=== PATIENT | female | born 1975 | race Two or more races ===

== ENCOUNTER 2024-04-15 16:36 | Emergency (ER) | payer BC, SELFPAY ==
--- NOTE | ~2024-04-15 | XR_ITS ---
CLINICAL HISTORY: cp 2 view chest x-ray. Comparison: None Findings: The lungs are adequately expanded. No focal consolidation. No effusion or pneumothorax. Cardiac and mediastinal contours are within normal limits. No acute osseous abnormality Impression: No acute process. This document has been electronically signed by: Andrew Suero MD on 04/15/2024 18:00:11
--- NOTE | 2024-04-15 16:39 | ECG_ITS ---
Test Reason : CHEST PAIN Blood Pressure : */* mmHG Vent. Rate : 72 BPM Atrial Rate : 72 BPM P-R Int : 158 ms QRS Dur : 78 ms QT Int : 376 ms P-R-T Axes : 15 58 15 degrees QTcB Int : 411 ms Normal sinus rhythm Nonspecific ST abnormality Abnormal ECG No previous ECGs available Referred By: Caren Perkins Electronically Signed By: PETR JACOME MD
[2024-04-15 16:58] VITALS: BP 125/70; PULSE 84; RESP 20; TEMP 36.8; O2SAT 100; BMI 29.1
--- NOTE | 2024-04-15 16:59 | ED_ITS ---
HPI - Chest Pain General Chief Complaint: Chest Pain Stated Complaint: chest pain, L arm pain Time Seen by Provider: 04/16/24 01:36 History of Present Illness ED Provider: Donna PRATT narrative: The patient is a 48-year-old woman who says that starting on Saturday she had some discomfort in her left chest and she felt there was some swelling in her left chest. Later she felt that she had similar symptoms on the right side. Additionally she has had some pain in her arms. At 1 point when her symptoms were most significant she took a dose of Flexeril with improvement in her pain. No fever, sweats, chills. No abdominal pain, nausea, vomiting. No pain or swelling in her legs. The patient says that she has had 2 small strokes. She says she was treated at [facility]. She is on atorvastatin. Related Data Allergies Allergy/AdvReac Type Severity Reaction Status Date / Time No Known Allergies Allergy Verified 04/15/24 17:05 Review of Systems 2 Review of Systems: Yes all other systems are reviewed and are negative [facility] Social History Social History Advance Directives: No Advance Directives Information Provided: Yes Do you have a plan to hurt others: No Plan Physical Exam 2 Vital Signs: Vital Signs: Last Vital Signs Temp 98.6 F 04/16/24 01:54 Pulse 88 04/16/24 01:54 Resp 15 04/16/24 01:54 BP 125/86 04/16/24 01:54 Pulse Ox 95 04/16/24 01:54 O2 Del Method Room Air 04/16/24 01:54 BMI result Body Mass Index 29.1 Const: Other: The patient is awake and alert. She is very youthful looking 48-year-old. She does not appear in any distress. She seems quite comfortable, cheerful, and very active. HEENT: Other: Face is symmetrical. Mucous membranes moist. Eyes: General: appearance normal, both eyes and all related structures Neck: Neck: Yes full ROM and Yes no JVD Resp: Effort & Inspection: normal respiratory effort Auscultation: clear to auscultation bilaterally Cardio: Rate: regular rate Rhythm: regular rhythm Heart sounds: S1 normal heart sound present and S2 normal heart sound present Skin: Other: Skin is dry and unremarkable Neuro: Other: The patient is awake and alert and looks entirely nontoxic and well. She is cheerful and talkative. She has a normal mental status. Cranial nerves 2-12 are intact. She moves her extremities normally. She has a normal gait. Extrem: Other: No calf swelling or tenderness. No peripheral edema. No asymmetry. Course Course Course Narrative: This is a Rapid Medical Exam performed in triage by Caren Perkins PA-C. Full HPI, ROS and PE to be performed by primary ED provider. 48-year-old female presenting to the ED c/o left-sided chest pain since Saturday. admits area feels inflamed w/L breast pain/swelling & assoc SOB PE: Talking in complete sentences, nontoxic appearing, lungs CTA. Plan: EKG, labs, CXR, viral testing Medical Decision Making Medical Decision Making MDM Narrative: The patient is a 48-year-old woman who reports a history of a stroke for which she was treated at [facility]. She looks entirely well today. Her description of her chest symptoms are very nonspecific. Based on her history and her physical exam my suspicion for an acute coronary syndrome would be quite low. I feel she has a nonischemic EKG. Her EKG shows normal sinus rhythm at 72 beats per minute. she has some mild nonspecific ST changes that I think are very unlikely to indicate an acute coronary syndrome. Her lab testing is unremarkable including an undetectable troponin. Viral testing is negative. She looks entirely well and nontoxic. The patient is reassured. Perhaps her pains have been muscular pains. She seems safe for discharge. Apparently her primary care doctor recently and she has not yet established a new primary care doctor. She hopes to follow-up at the [facility] primary care office in [place]. Lab Data 04/15/24 17:41 04/15/24 17:41 Labs: Lab Results 04/15/24 Range/Units 17:41 WBC 12.8 H (4.8-10.8) X10*3/uL RBC 4.81 (4.20-5.50) X10*6/uL Hgb 13.0 (12.0-16.0) g/dl Hct 39.4 (37.0-47.0) % MCV 81.9 (80.0-98.0) fL MCH 27.0 (27.0-33.0) pg MCHC 33.0 (31.0-35.0) g/dl RDW 13.7 (11.0-16.0) % Plt Count 291 (160-400) X10*3/uL MPV 10.3 (9.4-12.3) fL Immature Gran % (Auto) 1.1 H (0.0-0.4) % Neut % (Auto) 59.8 (45-73) % Lymph % (Auto) 29.6 (20-40) % [place] % (Auto) 6.7 (2-11) % Eos % (Auto) 2.5 (0-4) % Baso % (Auto) 0.3 (0-2) % Lymph # (Auto) 3.8 (1.2-4.9) X10*3/uL [place] # (Auto) 0.9 (0.1-1.2) X10*3/uL Eos # (Auto) 0.3 (0.0-0.4) X10*3/uL Baso # (Auto) 0.0 (0.0-0.2) X10*3/uL Abs Immat Gran (auto) 0.14 H (0.00-0.03) X10*3/uL Absolute Neuts (auto) 7.7 (2.0-8.3) x10*3/uL Absolute Nucleated RBC 0.000 (0.0-0.012) X10*3/uL Nucleated RBC % (auto) 0.0 (0.0-0.2) /100WBC PT 10.8 L (10.9-12.4) SEC INR 0.9 (0.9-1.1) Sodium 142 (135-145) mmol/L Potassium 4.2 (3.3-5.1) mmol/L Chloride 109 H (96-108) mmol/L Carbon Dioxide 25 (22-29) mmol/L Anion Gap 12 (12-20) BUN 22 H (9-16) mg/dL Creatinine 0.74 (0.5-1.4) mg/dL Estim Creat Clear Calc 88.8 Estimated GFR > 60 Random Glucose 90 (60-115) mg/dL Calcium 9.0 (8.4-10.2) mg/dL Magnesium 2.3 (1.6-2.6) mg/dL Total Bilirubin 0.3 (0.0-1.0) mg/dL Direct Bilirubin 0.1 (0.0-0.5) mg/dL AST 20 (5-31) U/L ALT 19 (0-31) U/L Alkaline Phosphatase 69 (39-117) U/L Troponin I High Sens < 2.7 (<3.5-17.0) ng/L B-Natriuretic Peptide < 10 (<100) pg/mL Total Protein 7.8 (6.5-8.0) g/dL Albumin 4.1 (3.5-5.0) g/dL Influenza Type A (PCR) NEGATIVE (Negative) Influenza Type B (PCR) NEGATIVE (Negative) RSV RNA Qual (PCR) NEGATIVE (Negative) SARS-CoV-2 RNA (RT-PCR) NEGATIVE (Negative) Discharge Plan Discharge Clinical Impression: Chest pain Patient Disposition: Home, Self-Care Additional Instructions: I do not think the symptoms you has been experiencing are a heart attack or the warning signs of a heart attack. I think it is more likely the symptoms you has been experiencing might be related to pain from muscles in your chest. Please work on getting a new primary care doctor for a follow up appointment. If at any point you feel significantly worse, especially if you feel short of breath or nauseated, return to the emergency room for additional evaluation. Referrals: [facility] [place] [Provider Group] (Needs new PCP) Interventions: ED Discharge Assessment Last Done: 04/16/24 01:54 Discharge Date/Time: 04/16/24 02:04 Print Language: Bulgarian
[2024-04-15 17:46] LABS: MANUAL DIFF FLAG NO
[2024-04-15 18:00] LABS: INTERNATIONAL NORM RATIO 0.9 (0.9-1.1); Prothrombin Time 10.8 SEC (10.9-12.4)
[2024-04-15 18:04] LABS: Alanine Aminotransferase 19 U/L (0-31); Albumin Level 4.1 g/dL (3.5-5.0); Alkaline Phosphatase 69 U/L (39-117); Anion Gap 12 (12-20); Aspartate Amino Transferase 20 U/L (5-31); Bilirubin Direct 0.1 mg/dL (0.0-0.5); Bilirubin Total 0.3 mg/dL (0.0-1.0); Blood Urea Nitrogen 22 mg/dL (9-16); Carbon Dioxide 25 mmol/L (22-29); Chloride 109 mmol/L (96-108); Creatinine Clr Calc Pharmacy 88.8; Estimated Glomerular Filt Rate > 60; Glucose Random 90 mg/dL (60-115); Magnesium 2.3 mg/dL (1.6-2.6); Potassium 4.2 mmol/L (3.3-5.1); Sodium 142 mmol/L (135-145); Total Protein 7.8 g/dL (6.5-8.0)
[2024-04-15 18:06] LABS: Basophils Percent Auto 0.3 % (0-2); Eosinophils Absolute Auto 0.3 X10*3/uL (0.0-0.4); Eosinophils Percent Auto 2.5 % (0-4); Hematocrit 39.4 % (37.0-47.0); Imm Gran Abs Auto 0.14 X10*3/uL (0.00-0.03); Imm Gran Pct Auto 1.1 % (0.0-0.4); Lymphocytes Absolute Auto 3.8 X10*3/uL (1.2-4.9); Lymphocytes Percent Auto 29.6 % (20-40); Mean Corpuscular Volume 81.9 fL (80.0-98.0); Mean Platelet Volume 10.3 fL (9.4-12.3); Monocytes Absolute Auto 0.9 X10*3/uL (0.1-1.2); Monocytes Percent Auto 6.7 % (2-11); Neutrophils Absolute Auto 7.7 x10*3/uL (2.0-8.3); Neutrophils Percent Auto 59.8 % (45-73); Platelet Count 291 X10*3/uL (160-400); Red Blood Count 4.81 X10*6/uL (4.20-5.50); Red Cell Distribution Width 13.7 % (11.0-16.0); White Blood Count 12.8 X10*3/uL (4.8-10.8)
[2024-04-15 18:09] LABS: B Type Natriuretic Peptide < 10 pg/mL (<100)
[2024-04-15 18:16] LABS: Troponin-I High Sensitivity < 2.7 ng/L (<3.5-17.0)
[2024-04-15 18:33] LABS: Influenza A PCR NEGATIVE (Negative); Influenza B PCR NEGATIVE (Negative); Resp Syncy Virus RNA Qual PCR NEGATIVE (Negative); SARS COV2 PCR INHOUSE NEGATIVE (Negative)
[2024-04-15 23:53] VITALS: BP 127/50; PULSE 78; RESP 17; TEMP 37; O2SAT 98
[2024-04-16 01:54] VITALS: BP 125/86; PULSE 88; RESP 15; TEMP 37; O2SAT 95
== END 2024-04-16 02:04 | disposition home or self-care (01) ==
LOC: HO.ED 04-16 01:55
PROVIDERS: Physician Assistant; Emergency Provider Emergency Medicine; PCP Internal Medicine
DX: R07.89 Other chest pain (principal); M79.602 Pain in left arm; M79.601 Pain in right arm; R06.02 Shortness of breath; Z86.73 Personal history of transient ischemic attack (TIA), and cerebral infarction without residual deficits; Z03.818 Encounter for observation for suspected exposure to other biological agents ruled out
CPT/HCPCS: 0241U; 36415; 71046; 80048; 80076; 83735; 83880; 84484; 85025; 85610; 93005; 99283

== ENCOUNTER → 2024-04-15 16:39 | Outpatient (BNV) | payer BC, SELFPAY | PROVIDERS: Emergency Provider Emergency Medicine; PCP Internal Medicine; Visit Provider Internal Medicine Cardiovascular Disease | DX: R07.9 Chest pain, unspecified (principal) | CPT/HCPCS: 93010 ==

== ENCOUNTER → 2024-04-15 17:01 | Outpatient (BNV) | payer SELFPAY | PROVIDERS: PCP Internal Medicine; Visit Provider Radiology Vascular & Interventional Radiology | DX: R07.9 Chest pain, unspecified (principal) | CPT/HCPCS: 71046 ==

== ENCOUNTER 2024-06-21 18:44 | Inpatient (IN) | payer OTHER, SELFPAY ==
--- NOTE | ~2024-06-21 | CT_ITS ---
CLINICAL HISTORY: Stroke Protocol CT angiography head and neck with contrast. 3D Postprocessing. Comparison: CT/SR - CT HEAD FOR STROKE - 06/21/24 19:01 EDT Findings: Aortic arch and cervical great vessels are patent with no aneurysm, dissection, hemodynamically significant stenoses, or occlusion. Intracranial arteries are patent. No aneurysm, dissection, hemodynamically significant stenoses, or occlusion. No abnormal intracranial enhancement. The visualized thyroid gland is unremarkable. No cervical mass or fluid collection. Lung apices clear. No acute fracture. IMPRESSION: Patent head and neck CTA. This document has been electronically signed by: Sharyn Ibarra MD on 06/21/2024 19:31:56
--- NOTE | ~2024-06-21 | MR_ITS ---
EXAMINATION: MR BRAIN WITHOUT CONTRAST CLINICAL INFORMATION: TIA COMPARISON: Correlated to CT head and CT angiogram head and neck dated June 21, 2024. TECHNIQUE: MRI of the brain was obtained using routine sequences without contrast. FINDINGS: Paramagnetic field distortion limiting the visualization of the anterior cranial fossa and middle cranial fossa. No restricted diffusion within the brain parenchyma. There is a focal, 4 mm, round, extra-axial, isointense T1 intermediate T2 FLAIR signal in the right midline posterior interhemispheric falx near the marginal sulcus. No acute intracranial hemorrhage, mass effect, midline shift, hydrocephalus or herniation. Flow-void signal within the main cerebral vessels is normal. There is a 1.14 cm heterogeneous mixed cystic component lesion in the pineal gland. Sellar/suprasellar region demonstrated prominence of the intrasellar CSF. Craniocervical junction is intact and normal. MR/MR head/brain wo con IMPRESSION: No acute stroke/nonhemorrhagic ischemia. Probable 4 mm meningioma, right midline posterior falx. 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 Electronically signed by: Nilo Burch MD 06/23/2024 08:30 AM EDT
--- NOTE | ~2024-06-21 | CT_ITS ---
CLINICAL HISTORY: Stroke Protocol, LEFT SIDE FACIAL DROOP CT head without contrast Comparison: None Findings: No intra-axial mass, midline shift, hydrocephalus, or acute hemorrhage. No significant atrophy-like change or white matter disease. Near-complete opacification of the left maxillary sinus. The orbits are within normal limits. There is no acute fracture. IMPRESSION: 1. No acute intracranial findings. This document has been electronically signed by: Sharyn Ibarra MD on 06/21/2024 19:13:37
[2024-06-21 18:49] VITALS: BP 122/89; PULSE 84; RESP 22; TEMP 36.7; O2SAT 99; BMI 28.3
--- NOTE | 2024-06-21 18:56 | ECG_ITS ---
Test Reason : STROKE ALERT Blood Pressure : */* mmHG Vent. Rate : 69 BPM Atrial Rate : 69 BPM P-R Int : 200 ms QRS Dur : 80 ms QT Int : 394 ms P-R-T Axes : 22 70 31 degrees QTcB Int : 422 ms Normal sinus rhythm Normal ECG When compared with ECG of 15-Apr-2024 16:49, No significant change was found Referred By: Jocelynn Aparicio Electronically Signed By: CHALO ODELL
--- NOTE | 2024-06-21 18:59 | ED_ITS ---
HPI - Neuro Symptoms/Deficit General Chief Complaint: Stroke Stated Complaint: left sode of face swelling/droop Time Seen by Provider: 06/21/24 18:57 Source: patient, family and old records reviewed Mode of arrival: ambulatory Limitations: no limitations History of Present Illness ED Provider: JOSEPH PRATT Narrative: 48 yo female with PMH of stroke she reports at [facility] 2 years ago as well as small tumor noted on MRI - she takes aspirin daily as well as atorvastatin. She comes in today as just [employer] she developed nausea and her L face was tingling. She became nervous as she states this reminded her of her prior stroke. She states at home her L eye was drooping. She is not on thinners. No recent illness/falls. She has no other symptoms. She reports atraumatic R subconj hemorrhage as well. She is compliant with all of her medications Onset (ago): hour(s) (1) Location: left face History of same: Yes Severity: mild Quality: weak and tingling Relieving factors: none Exacerbating factors: none Context: sudden onset On Anticoagulants: No Associated symptoms: denies other symptoms Treatments Prior to Arrival: none Related Data Allergies Allergy/AdvReac Type Severity Reaction Status Date / Time No Known Allergies Allergy Verified 06/21/24 18:56 Review of Systems 2 Review of Systems: Constitutional : No Fever, No Chills, No Fatigue ENT/Mouth : No sore throat, No Rhinorrhea Eyes: No Eye Pain, No Swelling, No Redness Cardiovascular : No Chest Pain, No SOB, No Dyspnea on Exertion Respiratory : No Cough, No Sputum Gastrointestinal : No Nausea, No Vomiting, No Diarrhea, No abdominal Pain Genitourinary : No Dysuria, No Urinary Frequency, No Hematuria, Musculoskeletal : No joint pain, No Myalgias, No Joint Swelling Skin : No Skin Lesions, No rash Neuro : pos Weakness, pos Numbness, No Dizziness, positive Headache All other systems reviewed and are negative [facility] Past Medical History Attestation statement: The following information was validated with the patient. Medical History (Updated 06/21/24 @ 19:59 by Suzie Kelley DO) CVA (cerebral vascular accident) HLD (hyperlipidemia) Social History Social History (Updated 06/21/24 @ 19:57 by Suzie Kelley DO) Patient Tobacco Use Status: Never used Tobacco Advance Directives: No Advance Directives Information Provided: No Physical Exam 2 Vital Signs: Vital Signs: Last Vital Signs Temp 98.0 F 06/21/24 19:23 Pulse 71 06/21/24 19:23 Resp 18 06/21/24 19:23 BP 130/62 06/21/24 19:23 Pulse Ox 99 06/21/24 19:23 O2 Del Method Room Air 06/21/24 19:23 BMI result Body Mass Index 28.3 Appearance: Alert. Oriented X3. No acute distress. Eyes: Pupils equal, round and reactive to light. small R subconj hemorrhage noted R eye medial ENT: Pharynx normal. Neck: Normal inspection. Neck supple. CVS: Normal heart rate and rhythm. Pulses normal. Respiratory: No respiratory distress. Breath sounds normal. Abdomen: Soft and nontender. Skin: Skin warm and dry. Normal skin color. Normal skin turgor. Extremities: No lower extremity edema. No calf ttp Neuro: Oriented X 3. No motor deficit. No sensory deficit. CN2-12 intact Course Course Course Narrative: This is an RME performed by Tara Aparicio CNP: Additional HPI, ROS, PE not included below will be deferred to primary provider. Patient is a 48-year-old female who presents emergency department with her spouse for evaluation. Last known well time 18:20. Reports that she went to take a shower, she then developed numbness to the left side of her face and drooping to the left eye which has since resolved since her arrival to the emergency department. She is very tearful during examination. She reports that she has had 4 strokes in the past, and has a ?Tumor in the has been seen on previous MRI. States that she takes atorvastatin and low-dose baby aspirin. No focal neurological deficits at the time of my evaluation. Ambulatory with steady gait. Evaluated by Dr. Kelley, orders placed for stroke protocol, ED nurse discharge made aware, patient assigned to ED bed [address] Reevaluation(s) Reevaluation #1: 758pm still NIH 0 Medications Administered Discontinued Medications Generic Name Dose Route Start Last Admin Trade Name Freq PRN Reason Stop Dose Admin Iohexol 100 ml 06/21/24 19:11 06/21/24 19:12 Iohexol 350 Mg/Ml 100 Ml Infus..Btl IV 06/21/24 19:12 75 ml ONCE ONE Administration Medical Decision Making Medical Decision Making MDM Narrative: 48 yo female with PMH of stroke she reports at [facility] 2 years ago as well as small tumor noted on MRI here with L face weakness resolved, L numbness face resolved hx of same in past dx with stroke - will get records from [facility]. At this time she is NIH 0 no indication for TNK given no deficits on arrival. Will obtain stroke protocol and outside records Differential Diagnosis Differential Diagnoses: The differential diagnosis associated with the presentation includes TIA, CVA, anxiety Admission/Observation Consideration of admission/observation: Escalation of care including admission/observation considered admit for TIA Consult Healthcare Provider Management of the patient was discussed with: Hospitalist (will admit) Lab Data [facility] Lab Attestation statement: I reviewed the patient's lab results. 06/21/24 19:29 06/21/24 19:29 Labs: Lab Results 06/21/24 06/21/24 Range/Units 19:24 19:29 WBC 12.2 H (4.8-10.8) X10*3/uL RBC 4.34 (4.20-5.50) X10*6/uL Hgb 11.4 L (12.0-16.0) g/dl Hct 35.5 L (37.0-47.0) % MCV 81.8 (80.0-98.0) fL MCH 26.3 L (27.0-33.0) pg MCHC 32.1 (31.0-35.0) g/dl RDW 13.1 (11.0-16.0) % Plt Count 275 (160-400) X10*3/uL MPV 10.5 (9.4-12.3) fL Immature Gran % (Auto) 0.5 H (0.0-0.4) % Neut % (Auto) 64.3 (45-73) % Lymph % (Auto) 25.7 (20-40) % [place] % (Auto) 6.4 (2-11) % Eos % (Auto) 2.5 (0-4) % Baso % (Auto) 0.6 (0-2) % Lymph # (Auto) 3.2 (1.2-4.9) X10*3/uL [place] # (Auto) 0.8 (0.1-1.2) X10*3/uL Eos # (Auto) 0.3 (0.0-0.4) X10*3/uL Baso # (Auto) 0.1 (0.0-0.2) X10*3/uL Abs Immat Gran (auto) 0.06 H (0.00-0.03) X10*3/uL Absolute Neuts (auto) 7.9 (2.0-8.3) x10*3/uL Absolute Nucleated RBC 0.000 (0.0-0.012) X10*3/uL Nucleated RBC % (auto) 0.0 (0.0-0.2) /100WBC PT 11.3 (10.9-12.4) SEC INR 1.0 (0.9-1.1) APTT 33.1 (26.0-36.8) SEC Sodium 137 (135-145) mmol/L Potassium 3.8 (3.3-5.1) mmol/L Chloride 109 H (96-108) mmol/L Carbon Dioxide 22 (22-29) mmol/L Anion Gap 10 L (12-20) BUN 15 (9-16) mg/dL Creatinine 0.63 (0.5-1.4) mg/dL Estim Creat Clear Calc 103.1 Estimated GFR > 60 POC Glucose 98 (60-115) mg/dL Random Glucose 94 (60-115) mg/dL Calcium 8.5 (8.4-10.2) mg/dL Troponin I High Sens < 2.7 (<3.5-17.0) ng/L Triglycerides 91 (<150) mg/dL Cholesterol 145 (<200) mg/dL LDL Cholesterol, Calc 70 (<100) mg/dL HDL Cholesterol 57 (>40) mg/dL Independent Interpretation I performed an independent interpretation of an: EKG and CT Scan (normal ) Interpretation: Rate: 69 Rhythm: NSR Jamul: normal Normal P waves. Normal MATEO. Normal QRS complex. ST T wave : normal no CAMILLA , inverted t wave V1 qTC: 422 prior studies: no acute ischemia The study has been interpreted contemporaneously by me. . Radiology Impression Discussion of test interpretation with radiology: I discussed test interpretation with the radiologist and I have reviewed the radiologist's reading. Independent Historian Clinical information obtained from an independent historian. History obtained from or confirmed by: Spouse External Record Review External record reviewed: Outpatient record NIH Stroke Scale Internal: Initial- Upon Arrival Level of Consciousness: Alert Level of Consciousness Questions: Answers both questions correctly Level of Consciousness Commands: Performs both tasks correctly Best Gaze: Normal Visual: No visual loss Facial Palsy: Normal Motor Arm (Right): No drift Motor Arm (Left): No drift Motor Leg (Right): No drift Motor Leg (Left): No drift Limb Ataxia: Absent Sensory: Normal Best Language: No aphasia Dysarthia: Normal Extinction and Inattention: No abnormality Score: 0 Critical Care Time Critical Care Time Critical Care Time: Yes Total Critical Care Time: 35 Attestation: stroke protocol, outside records, review of records, repeat asessments I attest to this time spent taking care of the patient Discharge Plan Discharge Clinical Impression: Brain TIA Patient Disposition: Admitted As Inpatient Print Language: New Zealander
[2024-06-21] MEDS: iohexoL 350 MG/ML 100 ML INFUS..BTL IV (19:12)
[2024-06-21 19:23] VITALS: BP 130/62; PULSE 71; RESP 18; TEMP 36.7; O2SAT 99
[2024-06-21 19:36] LABS: MANUAL DIFF FLAG NO
[2024-06-21 19:37] LABS: Glucose, Whole Blood 98 mg/dL (60-115)
[2024-06-21 19:41] LABS: Basophils Absolute Auto 0.1 X10*3/uL (0.0-0.2); Basophils Percent Auto 0.6 % (0-2); Eosinophils Absolute Auto 0.3 X10*3/uL (0.0-0.4); Eosinophils Percent Auto 2.5 % (0-4); Hematocrit 35.5 % (37.0-47.0); Hemoglobin 11.4 g/dl (12.0-16.0); Imm Gran Abs Auto 0.06 X10*3/uL (0.00-0.03); Imm Gran Pct Auto 0.5 % (0.0-0.4); Lymphocytes Absolute Auto 3.2 X10*3/uL (1.2-4.9); Lymphocytes Percent Auto 25.7 % (20-40); Mean Corpuscular HGB Conc 32.1 g/dl (31.0-35.0); Mean Corpuscular Hemoglobin 26.3 pg (27.0-33.0); Mean Corpuscular Volume 81.8 fL (80.0-98.0); Mean Platelet Volume 10.5 fL (9.4-12.3); Monocytes Absolute Auto 0.8 X10*3/uL (0.1-1.2); Monocytes Percent Auto 6.4 % (2-11); Neutrophils Absolute Auto 7.9 x10*3/uL (2.0-8.3); Neutrophils Percent Auto 64.3 % (45-73); Platelet Count 275 X10*3/uL (160-400); Red Blood Count 4.34 X10*6/uL (4.20-5.50); Red Cell Distribution Width 13.1 % (11.0-16.0); White Blood Count 12.2 X10*3/uL (4.8-10.8)
[2024-06-21 19:43] LABS: Prothrombin Time 11.3 SEC (10.9-12.4)
[2024-06-21 19:46] LABS: Partial Thromboplastin Time 33.1 SEC (26.0-36.8); Stroke Lab Use COMPLETE
[2024-06-21 19:52] LABS: Anion Gap 10 (12-20); Blood Urea Nitrogen 15 mg/dL (9-16); Calcium 8.5 mg/dL (8.4-10.2); Carbon Dioxide 22 mmol/L (22-29); Chloride 109 mmol/L (96-108); Cholesterol 145 mg/dL (<200); Creatinine Clr Calc Pharmacy 103.1; Estimated Glomerular Filt Rate > 60; Glucose Random 94 mg/dL (60-115); HDL Cholesterol 57 mg/dL (>40); LDL Cholesterol Calculated 70 mg/dL (<100); Potassium 3.8 mmol/L (3.3-5.1); Sodium 137 mmol/L (135-145); Triglycerides 91 mg/dL (<150)
[2024-06-21 20:08] LABS: Troponin-I High Sensitivity < 2.7 ng/L (<3.5-17.0)
[2024-06-21] MEDS: Aspirin 81 MG TAB.CHEW PO (21:30)
--- NOTE | 2024-06-21 21:32 | PC.NURSE ---
verbal read back for vital change dr. lubin
--- NOTE | 2024-06-21 21:41 | PC.NURSE ---
swallow screen completed- pt passed. Stroke education overview completed, pamphlet provided. pt verbalized understanding
[2024-06-21 23:22] VITALS: BP 145/71; PULSE 71; RESP 19; TEMP 36.6; O2SAT 100
--- NOTE | 2024-06-21 23:25 | MHC.EDTECH ---
This tech took over care of pt at 2300,rounded and introduced self to pt,vitals taken,belongings list completed copy placed in chart,pt is walking around room appears comfortable,call pinto within reach
--- NOTE | 2024-06-21 23:41 | P.HPHOSP_ITS ---
History of Present Illness Date of Service: 06/21/24 Attending physician on admission: Sarita Huffman Chief Complaint: L eye droop Patient is a 48-year-old female with a past medical history significant for CVA, who presented to the ED due to nausea earlier this morning followed by a noticeable left eye droop around 18:00 with left-sided facial numbness. The patient reports that she has a history of a CVA with similar symptoms however her vision was completely blocked at that time. This time she has not had any left-sided eye droop that she observed. This has since resolved and she feels back at her normal baseline. She does take aspirin and statin at baseline. She also a right subconjunctival hemorrhage that she woke up with this morning with unknown cause. Review of Systems 2 Constitutional: Constitutional: Denies body ache(s), Denies chills, Denies fatigue, Denies fever(s) and Denies headache(s) Eyes: Eyes: Denies change in vision and Denies photophobia ENT: Denies vertigo, Denies dizziness, Denies headache(s), Denies nasal congestion, Denies nasal discharge and Denies sore throat Cardiovascular: Cardiovascular: Denies chest pain, Denies syncope, Denies rapid heart rate, Denies leg edema, Denies lightheadedness and Denies dyspnea Respiratory: Respiratory: Denies chest congestion, Denies cough, Denies dyspnea and Denies wheezing Gastrointestinal: Gastrointestinal: Denies GI cramping, Denies diarrhea, Denies nausea and Denies vomiting Genitourinary: Genitourinary: Denies dysuria, Denies flank pain and Denies urinary urgency Musculoskeletal: Musculoskeletal: Denies myalgias, Denies numbness and Denies tingling Integumentary/Breasts: Skin/Breast: Denies rash Neurologic: Denies confusion, Denies vertigo, Denies dizziness, Denies syncope, Denies headache(s), Denies memory loss, Denies numbness, Denies seizure-like activity and Denies tingling Psychiatric: Psychiatric: Denies confusion and Denies memory loss Endocrine: Endocrine: Denies fatigue Hematologic/Lymphatic: Hematologic/Lymphatic: Denies easy bleeding and Denies easy bruising Allergic/Immunologic: Allergic/Immunologic: Denies wheezing [facility] Medical History CVA (cerebral vascular accident) HLD (hyperlipidemia) Functional capacity: independent ambulation Social History (Updated 06/21/24 @ 19:57 by Suzie Kelley DO) Patient Tobacco Use Status: Never used Tobacco Smoked in Last 30 Days: No Use of substances other than those prescribed or required for medical reasons: No Advance Directives: No Advance Directives Information Provided: No Patient : No Narrative: No smoking, alcohol or drug use Meds Allergies Allergy/AdvReac Type Severity Reaction Status Date / Time No Known Allergies Allergy Verified 06/21/24 18:56 Physical Exam 2 Vital Signs and Narrative: Vital Signs: Last Vital Signs Temp 97.8 F 06/21/24 23:22 Pulse 71 06/21/24 23:22 Resp 19 06/21/24 23:22 BP 145/71 H 06/21/24 23:22 Pulse Ox 100 06/21/24 23:22 O2 Del Method Room Air 06/21/24 23:22 BMI result Body Mass Index 28.3 General: AOx3, no acute distress Resp: CTA bilaterally CVS: S1, S2, RRR GI: +BS, NT, no distention Skin: Warm, dry Neuro: Cranial nerves II-XII grossly intact bilaterally. Motor grossly intact bilaterally. 5/5 strength bilateral upper and lower extremities. Extremities: No LE edema Psych: Appropriate affect Const: General: No confusion Orientation/consciousness: No confusion Eyes: Direct Ophthalmoscopy: No photophobia Neuro: General: No confusion Results Labs 06/21/24 19:29 06/21/24 19:29 Labs: Laboratory Results - last 24 hr 06/21/24 06/21/24 19:24 19:29 MCV 81.8 MCH 26.3 L MCHC 32.1 RDW 13.1 Plt Count 275 MPV 10.5 Immature Gran % (Auto) 0.5 H Neut % (Auto) 64.3 Lymph % (Auto) 25.7 [place] % (Auto) 6.4 Eos % (Auto) 2.5 Baso % (Auto) 0.6 Lymph # (Auto) 3.2 [place] # (Auto) 0.8 Eos # (Auto) 0.3 Baso # (Auto) 0.1 Abs Immat Gran (auto) 0.06 H Absolute Neuts (auto) 7.9 Absolute Nucleated RBC 0.000 Nucleated RBC % (auto) 0.0 PT 11.3 INR 1.0 APTT 33.1 Anion Gap 10 L Estim Creat Clear Calc 103.1 Estimated GFR > 60 POC Glucose 98 Random Glucose 94 Calcium 8.5 Triglycerides 91 Cholesterol 145 LDL Cholesterol, Calc 70 HDL Cholesterol 57 Assessment and Plan (1) Brain TIA: Status: Acute Plan Patient is a 48-year-old female with a past medical history significant for CVA, who presented to the ED due to nausea earlier this morning followed by a noticeable left eye droop around 18:00 with left-sided facial numbness. TIA, L facial droop, resolved - CT head and CTA head and neck negative - symptoms resolved, back at baseline - given ASA 81 mg in ED, continue QD - lipid panel normal. continue statin - MRI brain in AM - neurology consult - neuro checks Q2H - EKG with NSR - monitor on tele - echo with bubble study full code VTE prophy: lovenox Pt with L facial droop, resolved, likely TIA, requiring admission for further evaluation and monitoring for at least 2 midnights stay. Quality Stroke Does the patient have a stroke diagnosis?: No VTE Prior VTE?: No VTE Risk Level:: Medical - moderate - high VTE Device Contraindication: Treatment Not Indicated VTE Drug Contraindication: N/A - Med Ordered
[2024-06-22] VITALS (8 sets, daily range): BP systolic 106–126; BP diastolic 51–71; PULSE 59–77; RESP 14–18; TEMP 36.2–36.8; O2SAT 97–100; BMI 30.5
[2024-06-22] MEDS: 0.9 % Sodium Chloride Flush 3 ML SYRINGE IVFLUSH ×3 (01:15→23:30)
--- NOTE | 2024-06-22 04:06 | MHC.EDTECH ---
Rounds and vitals completed, pt is resting quietly,appears comfortable,call pinto in reach
[2024-06-22 05:42] LABS: Estimated Average Glucose 103 mg/dL; Hemoglobin A1C 98.3347 umol/L; Hemoglobin A1c % 5.2 % (<6.0); Total Hemoglobin (HGBA1C) 2979.3433 umol/L
[2024-06-22 05:53] LABS: Hematocrit 36.5 % (37.0-47.0); Hemoglobin 11.7 g/dl (12.0-16.0); Mean Corpuscular HGB Conc 32.1 g/dl (31.0-35.0); Mean Corpuscular Hemoglobin 26.1 pg (27.0-33.0); Mean Corpuscular Volume 81.5 fL (80.0-98.0); Mean Platelet Volume 10.6 fL (9.4-12.3); Platelet Count 271 X10*3/uL (160-400); Red Blood Count 4.48 X10*6/uL (4.20-5.50); Red Cell Distribution Width 13.2 % (11.0-16.0); White Blood Count 9.1 X10*3/uL (4.8-10.8)
[2024-06-22 06:05] LABS: Anion Gap 12 (12-20); Blood Urea Nitrogen 11 mg/dL (9-16); Calcium 8.5 mg/dL (8.4-10.2); Carbon Dioxide 21 mmol/L (22-29); Chloride 111 mmol/L (96-108); Creatinine Clr Calc Pharmacy 96.9; Estimated Glomerular Filt Rate > 60; Glucose Random 88 mg/dL (60-115); Potassium 3.8 mmol/L (3.3-5.1); Sodium 140 mmol/L (135-145)
--- NOTE | 2024-06-22 07:12 | PC.NURSE ---
assumed care of patient at 0700, patient awakens to verbal stimuli, alert and oriented x4. VSS. neuros intact
--- NOTE | 2024-06-22 08:28 | PC.NURSE ---
mri form completed with pt
--- NOTE | 2024-06-22 09:38 | P.CNNE_ITS ---
History of Present Illness Data of Consult Service Date: 06/22/24 Primary Care Provider: Unknown Physician HPI Reason for consult: Question TIA 48 years old woman who came to hospital for left-sided symptoms. She reported that she had a stroke in the past causing same symptoms when she was admitted at [facility]. She reported left-sided discomfort on her face, droopiness of I lead and face, which she thought was similar to her previous stroke and came to emergency room. When she arrived here her symptoms were resolved lasting for about 30-45 minutes total. She said that there was some discomfort in left side of her back of the head but no severe headache. She denied having regular headaches. There was no complaint of double vision or loss of vision. Speech or language function were intact. Review of Systems 2 Review of Systems: No recent cold or flu-like illness. [facility] Past Medical History Medical History CVA (cerebral vascular accident) HLD (hyperlipidemia) Social History Social History (Updated 06/21/24 @ 19:57 by Suzie Kelley DO) Patient Tobacco Use Status: Never used Tobacco Meds Allergies Allergy/AdvReac Type Severity Reaction Status Date / Time No Known Allergies Allergy Verified 06/21/24 18:56 Active Medications: Current Medications Acetaminophen (Acetaminophen 325 Mg Tablet) 975 mg PO Q6H PRN PRN Reason: Pain, Mild 1-3,fever,headache Calcium Carbonate (Calcium Carbonate 750 Mg Tab.Chew) 750 mg PO Q4H PRN PRN Reason: Heartburn Enoxaparin Sodium (Enoxaparin Sodium 40 Mg/0.4 Ml Syringe) 40 mg SUBCUT Q24H [facility] Magnesium Hydroxide (Milk Of Magnesia 30 Ml Oral.Susp) 30 ml PO DAILY PRN PRN Reason: Constipation Melatonin (Melatonin 3 Mg Tablet) 6 mg PO BEDTIME PRN PRN Reason: Insomnia Morphine Sulfate (Morphine Sulfate 2 Mg/Ml Cartridge) 2 mg IVPUSH Q4H PRN; Protocol PRN Reason: Pain, Moderate(Pain Scale 4-6) Ondansetron HCl (Ondansetron Hcl 4 Mg/2 Ml Vial) 4 mg IVPUSH Q8H PRN PRN Reason: Nausea and Vomiting Sodium Chloride (0.9 % Sodium Chloride Flush 3 Ml Syringe) 3 ml IVFLUSH QSHIFT [facility] Last Admin: 06/22/24 07:13 Dose: Not Given Physical Exam 2 Vital Signs: Vital Signs: Last Vital Signs Temp 97.6 F 06/22/24 09:18 Pulse 65 06/22/24 09:18 Resp 16 06/22/24 09:18 BP 115/71 06/22/24 09:18 Pulse Ox 100 06/22/24 09:18 O2 Del Method Room Air 06/22/24 09:18 BMI result Body Mass Index 30.5 Neuro: Other: She is alert and awake with normal spontaneity of speech fluency comprehension and anxious affect. Face is symmetrical. Visual collins are full. Conjunctival hemorrhage is noted on right side. Pupils were round reactive to light. Extraocular muscles are intact. Visual collins are full. There was no pronator drift. Deep tendon reflexes are trace to absent with flexor plantars. Speech is normal. Results Labs 06/22/24 05:35 06/22/24 05:35 Labs: Short CBC 06/21/24 06/22/24 Range/Units 19:29 05:35 WBC 12.2 H 9.1 (4.8-10.8) X10*3/uL Hgb 11.4 L 11.7 L (12.0-16.0) g/dl Hct 35.5 L 36.5 L (37.0-47.0) % Plt Count 275 271 (160-400) X10*3/uL BMP 06/21/24 06/22/24 19:29 05:35 Sodium 137 140 Potassium 3.8 3.8 Chloride 109 H 111 H Carbon Dioxide 22 21 L BUN 15 11 Creatinine 0.63 0.67 [address]cium 8[address] revealed moderately severe frontoparietal cortical cerebral atrophy. CTA did not reveal any vascular lesion. Assessment and Plan (1) Migraine equivalent syndrome: Status: Acute Probably migraine equivalent syndrome. She reported having similar episode. A noncontrast MRI of brain is reasonable to do as it would help to definitively make this diagnosis. 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 Procedures Date of Service Date of Service: 06/22/24
[2024-06-22] MEDS: Enoxaparin Sodium 40 MG/0.4 ML SYRINGE SUBCUT (09:44)
--- NOTE | 2024-06-22 09:44 | PHA.MEDREC ---
Pharmacy Consult ? Medication Reconciliation Pharmacy has completed the medication reconciliation. Spoke to patient at bedside, able to report medications
[2024-06-22] MEDS: valACYclovir HCL 500 MG TABLET PO (10:41)
[2024-06-22] MEDS: Aspirin 81 MG TAB.CHEW PO (10:41)
--- NOTE | 2024-06-22 12:45 | HO.PM.IMPN ---
Subjective Subjective Date of Service: 06/22/24 Review of Systems Follow up ? TIA vs migraine no pain or deficits at this time Physical Exam Vital Signs: Vital Signs: Last Vital Signs Temp 97.6 F 06/22/24 11:09 Pulse 68 06/22/24 11:09 Resp 16 06/22/24 11:09 BP 119/70 06/22/24 11:09 Pulse Ox 100 06/22/24 11:09 O2 Del Method Room Air 06/22/24 11:09 BMI result Body Mass Index 30.5 Appearing in no acute distress lung sounds are clear to auscultation heart regular rate rhythm, clear S1, S2 positive bowel sounds, abdomen is soft, nontender neuro patient is alert x3, no focal deficits Objective Data Active Medications Acetaminophen (Acetaminophen 325 Mg Tablet) 975 mg PO Q6H PRN PRN Reason: Pain, Mild 1-3,fever,headache Aspirin (Aspirin 81 Mg Tab.Chew) 81 mg PO DAILY [facility] Last Admin: 06/22/24 10:41 Dose: 81 mg Documented By: CLARA Atorvastatin Calcium (Atorvastatin Calcium 40 Mg Tablet) 40 mg PO BEDTIME [facility] Calcium Carbonate (Calcium Carbonate 750 Mg Tab.Chew) 750 mg PO Q4H PRN PRN Reason: Heartburn Enoxaparin Sodium (Enoxaparin Sodium 40 Mg/0.4 Ml Syringe) 40 mg SUBCUT Q24H [facility] Last Admin: 06/22/24 09:44 Dose: 40 mg Documented By: CLARA Magnesium Hydroxide (Milk Of Magnesia 30 Ml Oral.Susp) 30 ml PO DAILY PRN PRN Reason: Constipation Melatonin (Melatonin 3 Mg Tablet) 6 mg PO BEDTIME PRN PRN Reason: Insomnia Morphine Sulfate (Morphine Sulfate 2 Mg/Ml Cartridge) 2 mg IVPUSH Q4H PRN; Protocol PRN Reason: Pain, Moderate(Pain Scale 4-6) Ondansetron HCl (Ondansetron Hcl 4 Mg/2 Ml Vial) 4 mg IVPUSH Q8H PRN PRN Reason: Nausea and Vomiting Sodium Chloride (0.9 % Sodium Chloride Flush 3 Ml Syringe) 3 ml IVFLUSH QSHIFT [facility] Last Admin: 06/22/24 07:13 Dose: Not Given Documented By: PINKY Non-Admin Reason: See Note Valacyclovir HCl (Valacyclovir Hcl 500 Mg Tablet) 500 mg PO DAILY [facility] Last Admin: 06/22/24 10:41 Dose: 500 mg Documented By: CLARA Labs 06/22/24 05:35 06/22/24 05:35 Labs: Laboratory Results - last 24 hr 06/21/24 06/21/24 06/22/24 19:24 19:29 05:35 MCV 81.8 81.5 MCH 26.3 L 26.1 L MCHC 32.1 32.1 RDW 13.1 13.2 Plt Count 275 271 MPV 10.5 10.6 Immature Gran % (Auto) 0.5 H Neut % (Auto) 64.3 Lymph % (Auto) 25.7 [place] % (Auto) 6.4 Eos % (Auto) 2.5 Baso % (Auto) 0.6 Lymph # (Auto) 3.2 [place] # (Auto) 0.8 Eos # (Auto) 0.3 Baso # (Auto) 0.1 Abs Immat Gran (auto) 0.06 H Absolute Neuts (auto) 7.9 Absolute Nucleated RBC 0.000 0.000 Nucleated RBC % (auto) 0.0 0.0 PT 11.3 INR 1.0 APTT 33.1 Anion Gap 10 L 12 Estim Creat Clear Calc 103.1 96.9 Estimated GFR > 60 > 60 POC Glucose 98 Random Glucose 94 88 Estimat Average Glucose 103 Hemoglobin A1c % 5.2 Calcium 8.5 8.5 Triglycerides 91 Cholesterol 145 LDL Cholesterol, Calc 70 HDL Cholesterol 57 Assessment and Plan (1) Brain TIA: Status: Acute (2) Migraine equivalent syndrome: Status: Acute Plan 48-year-old female with a past medical history significant for CVA, who presented to the ED due to nausea earlier this morning followed by a noticeable left eye droop around 18:00 with left-sided facial numbness. TIA vs migraine patient reports previous stroke in [address] head and CTA head and neck negative symptoms resolved, back at baseline given ASA 81 mg in ED, continue QD lipid panel normal. continue statin MRI neurology consult EKG with NSR monitor on tele Obesity class 1. BMI 30.5 Discussed importance of weight management as this may be contributing to worsening of other comorbidities full code VTE prophy: lovenox Pt with L facial droop, resolved, likely TIA, requiring admission for further evaluation and monitoring for at least 2 midnights stay. Quality Stroke Does the patient have a stroke diagnosis?: No VTE Prior VTE?: No VTE Risk Level:: Medical - moderate - high VTE Device Contraindication: Treatment Not Indicated VTE Drug Contraindication: N/A - Med Ordered
--- NOTE | 2024-06-22 14:56 | MHC.CM.PN ---
Addendum entered by Eleanor Recinos 06/22/24 15:59: Pt returned from MRI. Pt states she lives at home with her , he is her HCP, copy requested. Pt is self-care, independent at baseline. Pts will transport her home at discharge. PCP: New PCP has been assigned to her as her PCP 2 weeks ago, she is unsure of the new PCP's name. Original Note: This CM attempted to meet with pt with the assistance of the elevator conductor, pt not in room as she went down for a CT scan, will reattempt to see pt at a later time.
[2024-06-22] MEDS: Acetaminophen 325 MG TABLET 975 MG PO (17:59)
[2024-06-22] MEDS: Atorvastatin Calcium 40 MG TABLET PO (20:22)
[2024-06-23 03:43] VITALS: BP 109/63; PULSE 60; RESP 16; TEMP 36.4; O2SAT 98
[2024-06-23 06:46] LABS: Hematocrit 38.2 % (37.0-47.0); Hemoglobin 12.2 g/dl (12.0-16.0); Mean Corpuscular HGB Conc 31.9 g/dl (31.0-35.0); Mean Corpuscular Hemoglobin 26.1 pg (27.0-33.0); Mean Corpuscular Volume 81.8 fL (80.0-98.0); Mean Platelet Volume 10.7 fL (9.4-12.3); Platelet Count 292 X10*3/uL (160-400); Red Blood Count 4.67 X10*6/uL (4.20-5.50); Red Cell Distribution Width 13.2 % (11.0-16.0); White Blood Count 7.9 X10*3/uL (4.8-10.8)
[2024-06-23 07:03] VITALS: BP 102/57; PULSE 60; RESP 18; TEMP 36.3; O2SAT 97
[2024-06-23 07:06] LABS: Anion Gap 10 (12-20); Blood Urea Nitrogen 13 mg/dL (9-16); Carbon Dioxide 23 mmol/L (22-29); Chloride 109 mmol/L (96-108); Estimated Glomerular Filt Rate > 60; Glucose Random 96 mg/dL (60-115); Potassium 3.8 mmol/L (3.3-5.1); Sodium 138 mmol/L (135-145)
[2024-06-23] MEDS: Enoxaparin Sodium 40 MG/0.4 ML SYRINGE SUBCUT (07:25)
[2024-06-23] MEDS: valACYclovir HCL 500 MG TABLET PO (07:25)
[2024-06-23] MEDS: Aspirin 81 MG TAB.CHEW PO (07:25)
[2024-06-23] MEDS: 0.9 % Sodium Chloride Flush 3 ML SYRINGE IVFLUSH (07:26)
--- NOTE | 2024-06-23 07:43 | PM.DS ---
DS: Providers Provider Date of Service: 06/23/24 Date of admission: 06/21/24 22:41 Date of discharge: 06/23/24 Primary care physician: Unknown Physician Consults: 06/21/24 23:47 Consult to Neurology Routine Consulting Provider: [facility] Reason for consultation: TIA Has provider been notified: No DS: Diagnosis Discharge Diagnosis (1) Brain TIA: Status: Acute (2) Migraine equivalent syndrome: Status: Acute DS: Summary Hospital Course Hospital Course: History and physical as per admitting provider. Patient is a 48-year-old female with a past medical history significant for CVA, who presented to the ED due to nausea earlier this morning followed by a noticeable left eye droop around 18:00 with left-sided facial numbness. The patient reports that she has a history of a CVA with similar symptoms however her vision was completely blocked at that time. This time she has not had any left-sided eye droop that she observed. This has since resolved and she feels back at her normal baseline. She does take aspirin and statin at baseline. She also a right subconjunctival hemorrhage that she woke up with this morning with unknown cause. 48-year-old woman treated for left-sided facial droop. She has reported history of a CVA in 2020/2021 at [facility]. MRI showed possible occipital area stroke however after reviewing with [facility] Neurology it seems like MRI would essentially be negative, she had a repeat MRI in 2022 for similar symptoms which did not show any areas of infarction but a small meningioma that was 6 mm. It is curious that no previous stroke is noted on head CT or MRI during this admission however significant brain atrophy is noted which could have been present for some time possibly congenital but unknown at this time. This MRI showed meningioma of 4 mm. She could also be experiencing migraine equivalent symptoms such as hemiplegic migraine. Patient certainly should follow up with her neurologist to have further workup of other diagnoses that may be causing her symptoms. She should continue aspirin and statin. Time Attestation Discharge Coordination Time (in mins): 40 Quality: Safe Use of Opioids Does Pt have an Active Cancer Diagnosis on the Problem List?: No Quality: Stroke Does the patient have a stroke diagnosis?: No Physical Exam Vital Signs: Vital Signs: Last Vital Signs Temp 97.4 F 06/23/24 07:03 Pulse 60 06/23/24 07:03 Resp 18 06/23/24 07:03 BP 102/57 L 06/23/24 07:03 Pulse Ox 97 06/23/24 07:03 O2 Del Method Room Air 06/23/24 07:03 BMI result Body Mass Index 30.5 Appearing in no acute distress head is normocephalic atraumatic eyes pupils are PERRLA sclera is anicteric mouth throat mucous membranes are intact and moist neck is supple no lymphadenopathy, no JVD noted lung sounds are clear to auscultation heart regular rate rhythm, clear S1, S2 positive bowel sounds, abdomen is soft, nontender neuro patient is alert x3, no focal deficits DS: Data Data Completed and Pending Labs on day of discharge: Laboratory Results - last 24 hr 06/23/24 06:26 WBC 7.9 RBC 4.67 Hgb 12.2 Hct 38.2 MCV 81.8 MCH 26.1 L MCHC 31.9 RDW 13.2 Plt Count 292 MPV 10.7 Absolute Nucleated RBC 0.000 Nucleated RBC % (auto) 0.0 Sodium 138 Potassium 3.8 Chloride 109 H Carbon Dioxide 23 Anion Gap 10 L BUN 13 Creatinine 0.68 Estim Creat Clear Calc 99.0 Estimated GFR > 60 Random Glucose 96 Calcium 9.0 Discharge Plan Discharge Anticipated Discharge Date/Time: 06/23/24 07:43 Patient Disposition: Home, Self-Care Discharge Diagnosis: Facial droop TIA versus migraine equivalent Referrals: Petra Yeager MD [Physician] - 1 Week Discharge Medications: Continued atorvastatin 40 mg tablet 40 mg PO BEDTIME valacyclovir 500 mg tablet 500 mg PO DAILY aspirin 81 mg Tablet,Chewable 81 mg PO DAILY Discharge Orders: Discharge Order (Routine); Ordered 06/23/24 Ordered By: Irma De Diet: Advance to usual diet Activity on Discharge: As tolerated Stand Alone Forms: Patient Portal Discharge page, Work/School Release Print Language: [place] Care Plan Goals: Follow up with Neurology for further workup of symptoms Health Concerns: Facial droop TIA versus migraine equivalent Plan of Treatment: Follow up with primary care provider as needed Take all medications as prescribed Assessment: See discharge summary
--- NOTE | 2024-06-23 09:34 | MHC.CM.PN ---
Patient has been medically cleared for dc to home today, self care.
[2024-06-23 11:11] VITALS: BP 132/69; PULSE 86; RESP 18; TEMP 36.1; O2SAT 100
== END 2024-06-23 11:16 | disposition home or self-care (01) | DRG 47 ==
LOC: HO.ED 20:51 → HO.EDOVER 22:45 → HO.IMC 06-22 08:09
PROVIDERS: Nurse Practitioner Family; Admitting Provider Physician Assistant; Emergency Provider Emergency Medicine; Visit Provider Nurse Practitioner Acute Care
DX: G45.9 Transient cerebral ischemic attack, unspecified (principal); D32.0 Benign neoplasm of cerebral meninges; G43.109 Migraine with aura, not intractable, without status migrainosus; G31.9 Degenerative disease of nervous system, unspecified; H11.31 Conjunctival hemorrhage, right eye; R29.810 Facial weakness; Z86.73 Personal history of transient ischemic attack (TIA), and cerebral infarction without residual deficits; Z79.82 Long term (current) use of aspirin; Z79.899 Other long term (current) drug therapy
CPT/HCPCS: 36415; 70450; 70496; 70498; 70551; 80048; 80061; 82947; 83036; 84484; 85025; 85027; 85610; 85730; 93005; 99285; J1650; Q9967

== ENCOUNTER → 2024-06-21 18:56 | Outpatient (BNV) | payer OTHER, SELFPAY | PROVIDERS: Emergency Provider Emergency Medicine; PCP Internal Medicine; Visit Provider Radiology Diagnostic Radiology | DX: I63.9 Cerebral infarction, unspecified (principal) | CPT/HCPCS: 70450; 70496 ==

== ENCOUNTER → 2024-06-21 18:56 | Outpatient (BNV) | payer OTHER, SELFPAY | PROVIDERS: Admitting Provider Physician Assistant; Emergency Provider Emergency Medicine; Visit Provider Internal Medicine | DX: I63.9 Cerebral infarction, unspecified (principal) | CPT/HCPCS: 93010 ==

== ENCOUNTER 2024-06-21 22:41 | Outpatient (BNV) | payer OTHER, SELFPAY | END 2024-06-22 14:22 | PROVIDERS: Admitting Provider Physician Assistant; Emergency Provider Emergency Medicine; Visit Provider Radiology Diagnostic Radiology | DX: G45.9 Transient cerebral ischemic attack, unspecified (principal) | CPT/HCPCS: 70551 ==

== ENCOUNTER → 2024-06-21 22:41 | Outpatient (BNV) | payer OTHER, SELFPAY | PROVIDERS: Admitting Provider Physician Assistant; Emergency Provider Emergency Medicine; Visit Provider Psychiatry & Neurology Neurology | DX: G43.109 Migraine with aura, not intractable, without status migrainosus (principal) | CPT/HCPCS: 99222 ==

== ENCOUNTER → 2024-06-21 22:41 | Outpatient (BNV) | payer OTHER, SELFPAY | PROVIDERS: Admitting Provider Physician Assistant; Emergency Provider Emergency Medicine; Visit Provider Physician Assistant | DX: G45.9 Transient cerebral ischemic attack, unspecified (principal); G43.109 Migraine with aura, not intractable, without status migrainosus | CPT/HCPCS: 99223; 99232; 99239 ==